=== PATIENT | male | born 1965 | race Caucasian/White ===

== ENCOUNTER 2025-01-08 01:26 | Emergency (ER) | payer MEDICAID ==
[~2025-01-08] VITALS: Ht 177.8 cm; Wt 102.5 kg
[2025-01-08 01:30] VITALS: PULSE 88; RESP 18; TEMP 98.4
[2025-01-08 02:38] LABS: BILIRUBIN,URINE NEGATIVE (NEGATIVE); CLARITY,URINE CLEAR (CLEAR); COLOR,URINE YELLOW (YELLOW); GLUCOSE, URINE NEGATIVE (NEGATIVE); KETONES,URINE NEGATIVE (NEGATIVE); LEUKOCYTE ESTERASE ,URINE NEGATIVE (NEGATIVE); NITRITE,URINE NEGATIVE (NEGATIVE); PH,URINE 6 (5 - 7); PROTEIN,URINE DIPSTICK NEGATIVE (NEGATIVE); RBC,URINE 21-50 /HPF (0-5); URINE UROBILINOGEN 0.2 mg/dL (0.2 - 1); WBC,URINE (MAN) 0-5 /HPF (0-5)
[2025-01-08 02:39] LABS: BACTERIA,URINE MANY /HPF; EPITHELIAL CELLS,URINE FEW /LPF
[2025-01-08] MEDS ORDERED: AMOX TR-K CLV1 EAC2 PO (03:30)
[2025-01-08 03:32] VITALS: BP 122/80; PULSE 80; RESP 16; TEMP 98.5; O2SAT 97
== END 2025-01-08 03:37 | disposition home or self-care (01) ==
LOC: ER 01:34
DX: R30.0 Dysuria (principal); N30.90 Cystitis, unspecified without hematuria; R59.1 Generalized enlarged lymph nodes; F17.210 Nicotine dependence, cigarettes, uncomplicated
CPT/HCPCS: 74176; 81001; 87086; 99283